=== PATIENT | female | born 2000 | race Caucasian/White ===

== ENCOUNTER 2019-04-09 23:39 | Emergency (ER) | payer OTHER ==
[~2019-04-09] VITALS: Ht 167.6 cm; Wt 61.4 kg
[2019-04-09] MEDS ORDERED: CIPR500T39 PO (23:46)
[2019-04-10 00:18] LABS: BASO # 0.1 10^3/uL (0.0-0.2); BASO % 0.9 % (0.0-1.0); EOS # 0.1 10^3/uL (0.0-0.50); EOS % 1.2 % (0.0-3.0); HEMATOCRIT 46.1 % (36.0-47.0); HEMOGLOBIN 15.6 g/dl (12.0-15.5); LYMPH # 2.1 10^3/uL (1.5-6.5); LYMPH % 20.5 % (24.0-44.0); MEAN CORPUSCULAR HEMOGLOBIN 31.6 pg (27.0-33.0); MEAN CORPUSCULAR HGB CONC 33.8 g/dl (32.0-36.5); MEAN CORPUSCULAR VOLUME 93.3 fl (80.0-96.0); MONO # 0.9 10^3/uL (0.0-0.8); MONO % 8.5 % (0.0-5.0); NEUTROPHILS # 7.1 10^3/uL (1.8-7.7); NEUTROPHILS % 68.7 % (36.0-66.0); PLATELET COUNT, AUTOMATED 268 10^3/uL (150-450); RED BLOOD COUNT 4.94 10^6/uL (4.00-5.40); WHITE BLOOD COUNT 10.3 10^3/uL (4.0-10.0)
[2019-04-10 00:37] LABS: BLOOD UREA NITROGEN 14 MG/DL (7-18); CALCIUM LEVEL 9.5 MG/DL (8.5-10.1); CARBON DIOXIDE LEVEL 25 MEQ/L (21-32); CHLORIDE LEVEL 106 MEQ/L (98-107); CREATININE FOR GFR 0.93 MG/DL (0.55-1.30); GLUCOSE, FASTING 98 MG/DL (70-100); LIPASE 145 U/L (73-393); POTASSIUM SERUM 3.8 MEQ/L (3.5-5.1); SODIUM LEVEL 139 MEQ/L (136-145)
[2019-04-10] MEDS ORDERED: ISOVUE-370 76% 100ML VIAL (Q9967) As Ordered ONE (00:42)
[2019-04-10] MEDS ORDERED: ONDANSETRON 4MG/2ML VIAL (J2405) IV ONE (00:45)
[2019-04-10] MEDS ORDERED: NS 1,000 ML IV ONE (00:45)
[2019-04-10] MEDS ORDERED: KETOROLAC 30 MG/ML VIAL (J1885) IV ONE (00:45)
--- NOTE | 2019-04-10 01:08 | REPVR ---
EXAM: CT Abdomen and Pelvis With Contrast EXAM DATE/TIME: 04/10/2019 12:49 AM CLINICAL HISTORY: 18 years old, female; Abdominal pain; Flank; Other: Bilateral; Additional info: Bilat flank pain, UTI, L groin pain TECHNIQUE: Imaging protocol: Axial computed tomography images of the abdomen and pelvis with intravenous contrast. Coronal and sagittal reformatted images were created and reviewed. Radiation optimization: All CT scans at this facility use at least one of these dose optimization techniques: automated exposure control; mA and/or kV adjustment per patient size (includes targeted exams where dose is matched to clinical indication); or iterative reconstruction. Contrast material: ISOVUE 370;Contrast volume: 100 ml;Contrast route: IV; COMPARISON: No relevant prior studies available. FINDINGS: Lungs: No suspicious mass or airspace process in the visualized lung bases. Liver: Liver appears normal with no focal abnormality. Gallbladder and bile ducts: Gallbladder is present and shows no evidence of gallstone. Pancreas: Pancreas appears normal. No focal mass or peripancreatic inflammation. Spleen: Spleen appears homogeneous without focal mass. Adrenals: Adrenal glands are normal in appearance. Kidneys and ureters: Kidneys appear normal, with no stone, solid mass or hydronephrosis. Stomach and bowel: No evidence of small bowel obstruction. No evidence of acute diverticulitis. Moderate pattern of colonic stool is present. Appendix: Appendix is not seen. No RLQ inflammation to suggest appendicitis. Intraperitoneal space: No pneumoperitoneum. Trace free fluid is present in the pelvis. Vasculature: No aortic aneurysm. Lymph nodes: No enlarged lymph nodes. Bladder: Bladder appears normal. Reproductive: Right ovarian cyst measuring 2 cm is incidentally noted Bones/joints: Bony structures show no acute fracture or destructive process. Soft tissues: Unremarkable. IMPRESSION: 1. No acute surgical or inflammatory intra-abdominal or pelvic process. 2. Large volume of colonic stool suggesting perhaps an element of constipation. 3. Right ovarian cyst measuring 2 cm Electronically signed by: Benton Elaine On 04/10/2019 01:07:57 AM
[2019-04-10] MEDS ORDERED: KEFL500C17 PO (01:42)
[2019-04-10] MEDS ORDERED: KETO10TAB PO (01:43)
[2019-04-10] MEDS ORDERED: ZOFR4TAB16 PO (01:45)
[2019-04-10] MEDS ORDERED: CEPHALEXIN 500 MG CAP PO ONE (01:45)
[2019-04-10 01:53] VITALS: BP 118/59
[2019-04-12] MEDS ORDERED: MACR100C43 PO (12:10)
== END 2019-04-10 01:55 | disposition home or self-care (01) ==
LOC: M ED 23:39
DX: N12 Tubulo-interstitial nephritis, not specified as acute or chronic (principal); N83.201 Unspecified ovarian cyst, right side; Z88.0 Allergy status to penicillin; Z88.5 Allergy status to narcotic agent
CPT/HCPCS: 74177; 80048; 81001; 83690; 85025; 87088; 87186; 96374; 96375; 99284; J1885; J2405; Q9967

== ENCOUNTER 2019-04-18 10:13 | Emergency (ER) | payer OTHER ==
[~2019-04-18] VITALS: Ht 167.6 cm; Wt 67.0 kg
[~2019-04-18 10:13] MED LIST: CIPR500T39 PO; KEFL500C17 PO; KETO10TAB PO; MACR100C43 PO; ZOFR4TAB16 PO
[2019-04-18 11:49] LABS: BASO # 0.1 10^3/uL (0.0-0.2); BASO % 0.9 % (0.0-1.0); EOS # 0.1 10^3/uL (0.0-0.50); EOS % 0.8 % (0.0-3.0); HEMATOCRIT 43.4 % (36.0-47.0); HEMOGLOBIN 14.6 g/dl (12.0-15.5); LYMPH # 1.7 10^3/uL (1.5-6.5); LYMPH % 20.7 % (24.0-44.0); MEAN CORPUSCULAR HEMOGLOBIN 31.3 pg (27.0-33.0); MEAN CORPUSCULAR HGB CONC 33.6 g/dl (32.0-36.5); MEAN CORPUSCULAR VOLUME 93.1 fl (80.0-96.0); MONO # 0.5 10^3/uL (0.0-0.8); MONO % 5.9 % (0.0-5.0); NEUTROPHILS # 5.7 10^3/uL (1.8-7.7); NEUTROPHILS % 71.4 % (36.0-66.0); PLATELET COUNT, AUTOMATED 288 10^3/uL (150-450); RED BLOOD COUNT 4.66 10^6/uL (4.00-5.40)
[2019-04-18 12:14] LABS: ALBUMIN 4.1 GM/DL (3.2-5.2); ALT/SGPT 26 U/L (12-78); BILIRUBIN,DIRECT 0.2 MG/DL (0.0-0.2); BILIRUBIN,TOTAL 0.7 MG/DL (0.2-1.0); BLOOD UREA NITROGEN 18 MG/DL (7-18); CALCIUM LEVEL 9.3 MG/DL (8.5-10.1); CARBON DIOXIDE LEVEL 28 MEQ/L (21-32); CHLORIDE LEVEL 109 MEQ/L (98-107); CREATININE FOR GFR 0.94 MG/DL (0.55-1.30); GLUCOSE, FASTING 87 MG/DL (70-100); LIPASE 123 U/L (73-393); POTASSIUM SERUM 4.1 MEQ/L (3.5-5.1); SODIUM LEVEL 143 MEQ/L (136-145); TOTAL PROTEIN 7.3 GM/DL (6.4-8.2)
[2019-04-18] MEDS ORDERED: KETOROLAC 30 MG/ML VIAL (J1885) IV ONE (12:45)
[2019-04-18 13:10] LABS: HCG, SERUM QUALITATIVE NEGATIVE (NEGATIVE)
[2019-04-18] MEDS ORDERED: ISOVUE-370 76% 100ML VIAL (Q9967) As Ordered ONE (13:17)
--- NOTE | 2019-04-18 13:59 | REP ---
CT of the abdomen and pelvis with IV contrast, without bowel contrast: Comparison is 04/10/2090. There is a 5.6 cm right adnexal cyst. The uterus and left adnexa are unremarkable. There is no pelvic ascites or adenopathy. The pelvic bowel loops are otherwise unremarkable. The appendix is obscured by bowel and is not visualized. There is no pericecal phlegmon or abscess to suggest appendicitis. There are no renal calculi. There is no hydronephrosis. There are no ureteral calculi. There are no bladder calculi. The visualized lung allen are unremarkable. The hepatic parenchyma, gallbladder, pancreas, spleen, adrenals, abdominal aorta, bowel and mesentery are unremarkable. There is no retroperitoneal adenopathy or mass. There is no bowel distension or obstruction. There is no pneumoperitoneum. Impression: There is a 5.6 cm right adnexal cyst. There is no CT evidence of appendicitis. There are no renal calculi. There is no hydronephrosis. There are no renal masses or cysts. There are no bladder calculi. Electronically Signed by Mickey Christopher MD 04/18/2019 01:51 P
[2019-04-18] MEDS ORDERED: diphenhydrAMINE INJ 50MG/ML VIAL (J1200) IV STA (15:34)
[2019-04-18] MEDS ORDERED: MORPHINE 4 MG/ML 1ML VIAL/SYRINGE (J2270) IV ONE (15:45)
[2019-04-18 16:13] VITALS: BP 140/67
--- NOTE | 2019-04-18 16:14 | REP ---
Pelvic ultrasound including transabdominal, endovaginal and Doppler ultrasound assessment: Comparison is the CT abdomen and pelvis CT performed earlier today. The uterus is anteverted and normal size measuring 7.5 x 2.9 x 4.8 cm. The endometrium is not thickened measuring 2.3 mm. Right ovary: There is a complex right ovarian cyst measuring 5.5 x 3.8 x 4.1 cm. Including the cyst the right ovary is enlarged measuring 6.3 x 4.5 x 4.6 cm. There is vascular flow in the right ovary. The Doppler resistive index of the right ovarian parenchymal arteries is 0.60. Left ovary: The left ovary measures 3.5 x 2.0 x 1.9 cm. There is no dominant mass or cyst. There is vascular flow with the Doppler resistive index of the left ovarian parenchymal arteries measuring 0.58. There is a trace of free fluid in the pelvis. Impression: There is a 5.5 cm complex right ovarian cyst. The left ovary is unremarkable. There is vascular flow in both ovaries. Uterus and endometrium are unremarkable. Electronically Signed by Mickey Christopher MD 04/18/2019 04:06 P
[2019-04-18] MEDS ORDERED: TRAM50TA2 PO (16:43)
--- NOTE | 2019-04-18 17:04 | ED PDOC ---
Post-Departure Follow-Up ft juan manuel syed faxed formal report of pelvic us for fu Raymond Cantu MD Apr 18, 2019 17:04
== END 2019-04-18 16:57 | disposition home or self-care (01) ==
LOC: M ED 10:13
DX: N83.201 Unspecified ovarian cyst, right side (principal); Z88.0 Allergy status to penicillin; Z88.5 Allergy status to narcotic agent
CPT/HCPCS: 36415; 74177; 76830; 76856; 80048; 80076; 81001; 83690; 84703; 85025; 93976; 96374; 96375; 99284; J1200; J1885; J2270; Q9967

== ENCOUNTER 2019-04-20 09:24 | Emergency (ER) | payer OTHER ==
[~2019-04-20] VITALS: Ht 167.6 cm; Wt 63.6 kg
[~2019-04-20 09:24] MED LIST changes: +TRAM50TA2 PO
[2019-04-20] MEDS ORDERED: TRAM50TA2 PO (09:32)
[2019-04-20 10:16] LABS: BASO # 0.1 10^3/uL (0.0-0.2); BASO % 0.8 % (0.0-1.0); EOS # 0.1 10^3/uL (0.0-0.50); EOS % 0.6 % (0.0-3.0); HEMATOCRIT 41.3 % (36.0-47.0); HEMOGLOBIN 13.9 g/dl (12.0-15.5); LYMPH # 1.5 10^3/uL (1.5-6.5); MEAN CORPUSCULAR HEMOGLOBIN 30.4 pg (27.0-33.0); MEAN CORPUSCULAR HGB CONC 33.7 g/dl (32.0-36.5); MEAN CORPUSCULAR VOLUME 90.4 fl (80.0-96.0); MONO # 0.4 10^3/uL (0.0-0.8); MONO % 4.9 % (0.0-5.0); NEUTROPHILS # 6.4 10^3/uL (1.8-7.7); NEUTROPHILS % 75.5 % (36.0-66.0); PLATELET COUNT, AUTOMATED 284 10^3/uL (150-450); RED BLOOD COUNT 4.57 10^6/uL (4.00-5.40); WHITE BLOOD COUNT 8.5 10^3/uL (4.0-10.0)
--- NOTE | 2019-04-20 11:39 | REP ---
REASON FOR EXAM: Followup 5.5 cm sized complex right ovarian cyst seen on prior examination obtained 04/18/2019 which was reviewed. Transvesical and transvaginal imaging was obtained. The uterus is unchanged in size, shape, and echo pattern. The endometrial echo complex is again seen to be normal. It too is unchanged from 2 days ago. The right ovary measures 4.5 x 3.1 x 4.2 cm. In the right ovary there is a 2.4 x 1.8 x 3.2 cm sized complex cystic structure. The right ovarian RI is 0.64. Left ovary measures 3.0 x 2.1 x 2.3 cm and is within normal limits with an RI of 0.64. There is a trace amount of free fluid in the pelvis. IMPRESSION: The complex cyst is seen previously in the right ovary has gotten smaller as described above. The examination is otherwise unremarkable. Electronically Signed by Alfredo Mclean DO 04/20/2019 12:41 P
[2019-04-20] MEDS ORDERED: KETOROLAC 30 MG/ML VIAL (J1885) IV ONE (12:15)
[2019-04-20] MEDS ORDERED: ISOVUE-370 76% 100ML VIAL (Q9967) As Ordered ONE (12:39)
--- NOTE | 2019-04-20 15:26 | REP ---
REASON: Right lower quadrant pain. COMPARISON: 04/18/2019. CONTRAST: 100 mL Isovue 370. The lung bases are clear. The liver, gallbladder, spleen, pancreas, adrenal glands, and kidneys are again seen to be normal. The bowel loops and their mesenteries are within normal limits and essentially unchanged. The appendix is unremarkable in appearance. There is no free fluid or free air. The abdominal aorta and paraaortic regions are within normal limits. There is no evidence of an intra-abdominal mass or adenopathy. CT PELVIS: There is a trace amount of free pelvic fluid. The large cystic structure seen previously in the right adnexa has gotten significantly smaller. Today it has a maximal dimension of 3.3 cm, previously 5.6 cm. The pelvic bowel loops are unremarkable. The osseous structures are stable and intact. IMPRESSION: 1. No appendicitis. 2. Resolving right adnexal cyst. Electronically Signed by Alfredo Mclean DO 04/20/2019 05:18 P
[2019-04-20 15:49] VITALS: BP 122/74
[2019-04-20 16:30] LABS: CHLAMYDIA DNA AMPLIFICATION NEGATIVE (NEGATIVE); GC DNA AMPLIFICATION NEGATIVE (NEGATIVE)
== END 2019-04-20 15:51 | disposition home or self-care (01) ==
LOC: M ED 09:24
DX: N83.291 Other ovarian cyst, right side (principal); Z79.899 Other long term (current) drug therapy; Z88.0 Allergy status to penicillin; Z88.5 Allergy status to narcotic agent
CPT/HCPCS: 74177; 76830; 76856; 80047; 81001; 84702; 85025; 87210; 87491; 87591; 93976; 96374; 99284; J1885; Q9967

== ENCOUNTER → 2019-05-05 | Outpatient (REF) | payer OTHER ==
[2019-05-05 18:06] LABS: CHLAMYDIA DNA AMPLIFICATION NEGATIVE (NEGATIVE); GC DNA AMPLIFICATION NEGATIVE (NEGATIVE)
== END ==
LOC: M SFHCLERA 12:01
PROVIDERS: ATTEND Nurse Practitioner Family
DX: R10.9 Unspecified abdominal pain (principal)
CPT/HCPCS: 81002; 81025; 87661; 96372; G0463; J1885

== ENCOUNTER 2019-10-19 06:40 | Emergency (ER) | payer OTHER ==
[~2019-10-19] VITALS: Ht 167.6 cm; Wt 65.6 kg
[2019-10-19] MEDS ORDERED: BIRTH CONTROL (06:47)
[2019-10-19] MEDS ORDERED: AMIT-255 PO (06:47)
[2019-10-19] MEDS ORDERED: GABA-845 PO (06:47)
[2019-10-19] MEDS ORDERED: ORIL150T PO (06:47)
[2019-10-19] MEDS ORDERED: KETOROLAC 30 MG/ML VIAL (J1885) IV ONE (07:15)
[2019-10-19] MEDS ORDERED: NS 1,000 ML IV ONE (07:15)
[2019-10-19 07:35] LABS: BASO % 0.4 % (0.0-1.0); EOS # 0.1 10^3/uL (0.0-0.5); HEMATOCRIT 41.6 % (36.0-47.0); HEMOGLOBIN 14.4 g/dl (12.0-15.5); LYMPH # 0.8 10^3/uL (1.5-5.0); LYMPH % 9.8 % (24.0-44.0); MEAN CORPUSCULAR HEMOGLOBIN 31.2 pg (27.0-33.0); MEAN CORPUSCULAR HGB CONC 34.6 g/dl (32.0-36.5); MEAN CORPUSCULAR VOLUME 90.2 fl (80.0-96.0); MONO # 0.5 10^3/uL (0.0-0.8); MONO % 6.5 % (0.0-5.0); NEUTROPHILS # 6.6 10^3/uL (1.5-8.5); NEUTROPHILS % 82.1 % (36.0-66.0); PLATELET COUNT, AUTOMATED 214 10^3/uL (150-450); RED BLOOD COUNT 4.61 10^6/uL (4.00-5.40); WHITE BLOOD COUNT 8.1 10^3/uL (4.0-10.0)
[2019-10-19 08:04] LABS: BLOOD UREA NITROGEN 13 MG/DL (7-18); CALCIUM LEVEL 8.9 MG/DL (8.5-10.1); CARBON DIOXIDE LEVEL 25 MEQ/L (21-32); CHLORIDE LEVEL 107 MEQ/L (98-107); CREATININE FOR GFR 0.84 MG/DL (0.55-1.30); GLUCOSE, FASTING 91 MG/DL (70-100); POTASSIUM SERUM 3.6 MEQ/L (3.5-5.1); SODIUM LEVEL 137 MEQ/L (136-145)
[2019-10-19] MEDS ORDERED: MORPHINE 4 MG/ML 1ML VIAL/SYRINGE (J2270) IV ONE ×2 (08:30→10:15)
[2019-10-19] MEDS ORDERED: ONDANSETRON 4MG/2ML VIAL (J2405) IV ONE (08:30)
--- NOTE | 2019-10-19 10:06 | REP ---
Clinical: Pelvic pain. Technique: Transabdominal pelvic ultrasound followed by transvaginal examination for better evaluation of the endometrium and adnexa with color Doppler evaluation of the ovaries. Findings: Bladder is normal and measures 7.5 x 5.7 x 7.0 cm. Normal anteverted uterus measures 7.3 x 3.1 x 4.8 cm. Endometrial complex measures 9.3 mm thickness. Bilateral ovaries are normal in appearance and vascularity without torsion. Right ovary measures 3.0 x 1.9 x 2.8 cm (RI 0.60) and a right paraovarian simple cyst is identified measuring 0.9 x 1.4 x 0.9 cm. Left ovary measures 3.1 x 1.1 x 2.5 cm (RI 0.62). Small amount of free fluid in the pelvis is nonspecific and possibly physiologic. Impression: 1.4 cm simple right paraovarian cyst. Otherwise essentially normal examination. Electronically Signed by Eliud Polanco MD 10/19/2019 09:57 A
[2019-10-19] MEDS ORDERED: METOCLOPRAMIDE INJ 10MG/2ML VIAL (J2765) IV ONE (11:00)
[2019-10-19 12:03] VITALS: BP 109/53
== END 2019-10-19 12:22 | disposition home or self-care (01) ==
LOC: M ED 06:40
DX: N80.9 Endometriosis, unspecified (principal); N83.201 Unspecified ovarian cyst, right side; Z88.0 Allergy status to penicillin; Z88.5 Allergy status to narcotic agent
CPT/HCPCS: 76830; 76856; 80048; 81001; 84702; 85025; 93976; 96374; 96375; 96376; 99284; J1885; J2270; J2405; J2765

== ENCOUNTER 2020-02-23 14:20 | Emergency (ER) | payer OTHER ==
[~2020-02-23] VITALS: Ht 167.6 cm; Wt 66.9 kg
[~2020-02-23 14:20] MED LIST changes: +AMIT-255 PO; +BIRTH CONTROL; +GABA-845 PO; +ORIL150T PO
[2020-02-23] MEDS ORDERED: KETOROLAC 60MG 2ML VIAL IM ONE (15:30)
[2020-02-23 15:39] LABS: BASO # 0.1 10^3/uL (0.0-0.2); BASO % 0.9 % (0.0-1.0); EOS # 0.1 10^3/uL (0.0-0.5); EOS % 1.8 % (0.0-3.0); HEMATOCRIT 42.4 % (36.0-47.0); HEMOGLOBIN 14.5 g/dl (12.0-15.5); LYMPH # 2.2 10^3/uL (1.5-5.0); LYMPH % 38.3 % (24.0-44.0); MEAN CORPUSCULAR HEMOGLOBIN 31.5 pg (27.0-33.0); MEAN CORPUSCULAR HGB CONC 34.2 g/dl (32.0-36.5); MONO # 0.5 10^3/uL (0.0-0.8); MONO % 9.3 % (0.0-5.0); NEUTROPHILS # 2.8 10^3/uL (1.5-8.5); NEUTROPHILS % 49.5 % (36.0-66.0); PLATELET COUNT, AUTOMATED 293 10^3/uL (150-450); RED BLOOD COUNT 4.61 10^6/uL (4.00-5.40); WHITE BLOOD COUNT 5.7 10^3/uL (4.0-10.0)
[2020-02-23 16:04] LABS: ALT/SGPT 15 U/L (12-78); BILIRUBIN,DIRECT 0.1 MG/DL (0.0-0.2); BILIRUBIN,TOTAL 0.3 MG/DL (0.2-1.0); BLOOD UREA NITROGEN 14 MG/DL (7-18); CALCIUM LEVEL 9.4 MG/DL (8.5-10.1); CARBON DIOXIDE LEVEL 26 MEQ/L (21-32); CHLORIDE LEVEL 106 MEQ/L (98-107); GLOMERULAR FILTRATION RATE > 60.0 (>60); GLUCOSE, FASTING 93 MG/DL (70-100); LIPASE 208 U/L (73-393); POTASSIUM SERUM 4.2 MEQ/L (3.5-5.1); SODIUM LEVEL 140 MEQ/L (136-145); TOTAL PROTEIN 7.2 GM/DL (6.4-8.2)
[2020-02-23 16:56] VITALS: BP 132/74
--- NOTE | 2020-02-23 17:16 | REP ---
REASON: Pelvic pain. COMPARISON: 10/19/2019 Transvesical imaging was obtained. There reason transvaginal imaging was withheld is unknown to me. The exam is limited by the lack of transvaginal imaging. The uterus is unchanged in size, shape, and echo pattern measuring 7.5 x 3.4 x 4.3 cm. The endometrial echo complex has a normal transvesical appearance measuring 6 mm and in its greatest thickness. The right ovary measures 2.4 x 1.8 x 2 cm and is within normal limits with an RI of 0.42. The left ovary measures 2.3 x 1.6 x 2 cm and is within normal limits with an RI of 0.68. Urinary bladder measures 6 x 8 x 10 cm. IMPRESSION: Normal transvesical pelvic ultrasound. Electronically Signed by Alfredo Mclean DO 02/24/2020 10:35 A
== END 2020-02-23 16:58 | disposition home or self-care (01) ==
LOC: M ED 14:20
DX: N80.9 Endometriosis, unspecified (principal); Z88.1 Allergy status to other antibiotic agents; Z88.5 Allergy status to narcotic agent; Z79.899 Other long term (current) drug therapy
CPT/HCPCS: 36415; 76856; 80048; 80076; 81001; 83690; 84702; 85025; 93976; 99284; J1885

== ENCOUNTER 2020-04-11 11:15 | Day surgery (SDC) | payer OTHER ==
[2020-04-11] MEDS ORDERED: LevoFLOXacin 500MG/100ML IV BAG (J1956 PER 250MG) ONE (11:17)
[2020-04-11] MEDS ORDERED: LIDOCAINE 2% 100MG/5ML SDV (FOR ANES.) ONE (14:21)
[2020-04-11] MEDS ORDERED: propofoL 200 MG/20 ML VIAL ONE (14:21)
[2020-04-11] MEDS ORDERED: dexameTHASONE 4 MG/ML 1ML VIAL (J1100 PER 1MG) ONE (14:21)
[2020-04-11] MEDS ORDERED: ONDANSETRON 4MG/2ML VIAL ONE (14:21)
[2020-04-11] MEDS ORDERED: fentaNYL 100 MCG/2 ML INJECTION (J3010) ONE (14:22)
[2020-04-11] MEDS ORDERED: MIDAZOLAM INJ 2MG/2ML VIAL (J2250 PER 1MG) ONE (14:22)
[2020-04-11] MEDS ORDERED: BOTOX THERAPEUTIC 100 UNIT VIAL (J0585 PER 1 UNIT) ONE (14:30)
[2020-04-11] MEDS ORDERED: methylPREDNISolone 500 MG VIAL (J2930) ONE (14:36)
[2020-04-11] MEDS ORDERED: LIDOCAINE 1% MDV 20ML VIAL ONE (14:36)
[2020-04-11] MEDS ORDERED: KETOROLAC 60MG 2ML VIAL ONE (15:42)
[2020-04-11] MEDS ORDERED: ACETAMINOPHEN 1000MG 100ML IV BTL (OFIRMEV) (J0131 PER 10MG) ONE (15:43)
[2020-04-11] MEDS ORDERED: SILVER NITRATE APPLICATOR ONE (15:50)
[2020-04-11] MEDS ORDERED: METOCLOPRAMIDE INJ 10MG/2ML VIAL (J2765 PER 1) ONE (16:55)
[2020-04-11] MEDS ORDERED: PERCOCET 5MG/325MG TAB ONE ×2 (16:55→18:26)
[2020-05-25 10:52] LABS: APPEARANCE, URINE MANUAL CLEAR (CLEAR); COLOR, URINE MANUAL ORANGE (YELLOW); PH,URINE MAN OBSCURED UNITS (5.0 - 7.0)
[2020-05-25 10:53] LABS: BILIRUBIN, URINE MANUAL OBSCURED (NEGATIVE); BLOOD URINE MANUAL OBSCURED (NEGATIVE); GLUCOSE, URINE (UA) MANUAL OBSCURED mg/dL (NEGATIVE); KETONE, URINE MANUAL OBSCURED mg/dL (NEGATIVE); LEUKOCYTE ESTERASE, URINE MAN OBSCURED (NEGATIVE); NITRITE, URINE MANUAL OBSCURED (NEGATIVE); PROTEIN, URINE MANUAL OBSCURED mg/dL (NEGATIVE); SQUAMOUS EPITHELIAL CELL URINE SMALL AMOUNT /hpf (SMALL AMT); UROBILINOGEN, URINE MANUAL OBSCURED mg/dl (NORMAL)
[2020-05-25 10:54] LABS: BACTERIA, URINE SMALL AMOUNT
[2020-06-03 01:00] LABS: BASO # 0.1 10^3/uL (0.0-0.2); EOS # 0.1 10^3/uL (0.0-0.5); EOS % 1.2 % (0.0-3.0); HEMATOCRIT 42.9 % (36.0-47.0); HEMOGLOBIN 14.4 g/dl (12.0-15.5); LYMPH # 1.7 10^3/uL (1.5-5.0); LYMPH % 34.2 % (24.0-44.0); MEAN CORPUSCULAR HEMOGLOBIN 31.8 pg (27.0-33.0); MEAN CORPUSCULAR HGB CONC 33.6 g/dl (32.0-36.5); MEAN CORPUSCULAR VOLUME 94.7 fl (80.0-96.0); MONO # 0.4 10^3/uL (0.0-0.8); MONO % 7.1 % (0.0-5.0); NEUTROPHILS # 2.8 10^3/uL (1.5-8.5); NEUTROPHILS % 56.3 % (36.0-66.0); PLATELET COUNT, AUTOMATED 259 10^3/uL (150-450); RED BLOOD COUNT 4.53 10^6/uL (4.00-5.40); WHITE BLOOD COUNT 4.9 10^3/uL (4.0-10.0)
--- NOTE | 2020-06-08 08:11 | RO ---
DATE OF OPERATION: 04/11/2020 PREOPERATIVE DIAGNOSES: 1. Interstitial cystitis. 2. Chronic pelvic pain. 3. Myofascial pain syndrome. 4. Endometriosis. POSTOPERATIVE DIAGNOSES: 1. Interstitial cystitis. 2. Chronic pelvic pain. 3. Myofascial pain syndrome. 4. Endometriosis. PROCEDURES: 1. Diagnostic cystoscopy with bladder instillation of medications (40,000 units of heparin, 20 mL of 8.4% of sodium bicarbonate, 20 mL of 1% Xylocaine, Solu- Medrol 250 mg). 2. Diagnostic hysteroscopy. 3. Dilation and curettage with MyoSure. 4. Mirena intrauterine device insertion. 5. Levator ani pelvic muscle trigger injection with 1% Xylocaine and Solu-Medrol 250 mg. 6. Botox 100 units. SURGEON: Dr. Angelica Christopher [employer]: None. ANESTHESIA: MAC. ESTIMATED BLOOD LOSS: 25 mL estimated. INTRAVENOUS FLUIDS: 500 mL lactated Ringer's. URINE OUTPUT: Not recorded. COMPLICATIONS: None. SPECIMENS: Intrauterine curettings. FINDINGS: Hysteroscopy revealed a fairly empty uterus with the appearance of progesterone effect with what appeared to be patent ostia bilaterally. Cystoscopy had the appearance of interstitial cystitis with multiple petechiae at the dome of the bladder and on the posterior portion, including in the portion where the ureters were. Both ureters were found to be patent. The urethra was normal without masses, diverticulum, or polyps, and no sphincter deficiency was noted. PROCEDURE IN DETAIL: The patient was brought back to the operating room, where anesthesia was induced, and patient was placed in the dorsal lithotomy position, draped and prepped in the usual sterile fashion. Exam under anesthesia was then performed with the above findings. A 30-degree 5 mm operative cystoscope was then put together and checked for all working parts and then under flow was introduced into the urethra with the above findings. Flow was discontinued at the internal sphincter of the urethra, and no sphincter deficiency was then noted. Flow was then replaced for hydrodistention into the bladder, and the above findings were then found. The bladder was then emptied and then distended to a total of 500 mL. The distention was recorded for a total of 2 minutes total. Then a total of 250 mL was then removed for better visualization of the ureters, which was looked at more specifically and within the trigone. The hydrodistention fluid was then removed. Cystoscope was then removed without difficulty. Syringe with Solu-Medrol and 1% Xylocaine, which was confirmed and expiration date was confirmed, as then placed with a 20-gauge spinal needle and was injected into the patient's right levator ani muscle with a total of 5 mL of fluid. Prior to injected, withdrawal to ensure no intravascular injection was performed. This was placed in the anterior portion of the muscle, and then additional injection was then placed deeper, further into the muscle toward the arcus tendineus, approximately 1.5 cm, and, again, withdrawal was performed first. This was repeated on patient's left side. Syringe was then removed. This same process was repeated with Botox 100 units. A bivalve speculum was then placed within the patient's vagina, and the cervix was then identified. The anterior lip of the cervix was then grasped with a single-tooth tenaculum, and the cervix was noted to be nulliparous. The cervix was then dilated with a slightly curved Hegar to a 16 size. A 0 scope hysteroscope was then put together through the MyoSure device and zeroed out and balanced. With hydrodistention, it was then introduced through the cervical canal under direct visualization until it was introduced into the uterus. The above findings were then found. The evacuation suction was then removed, and the MyoSure device was then placed, again under direct visualization. Mild curetting was then performed in all areas of the uterus, both anterior and posterior and both sides of the endometrium within the uterus under direct visualization, taking special care not to go too deep and just barely touching the endometrium and under direct visualization at all times. The MyoSure device was then removed, and suction was performed for better visualization to look at the curetted areas and for pictures. The remaining fluid was then removed, and hysteroscope again was removed. The uterus was noted to sound to 8 cm. Mirena was then removed sterilely from the immunohematologist's box and placed on the sterile field and loaded up for insertion and through the insertion device was placed gently through the cervical canal into the uterus until the fundus was palpated. This was then pulled back approximately 1 cm, and then through the insertion device it was expelled while gently pushing forward to the fundus of the uterus. The insertion device was then gently removed without difficulty. The strings were then cut approximately 3 cm from the external os the cervix. The single-tooth tenaculum was then removed, and hemostasis was achieved with silver nitrate without difficulty. A Zuleta catheter was then placed into the urethra, into the bladder, and the bladder was emptied, and instillation medications as mentioned above in procedure was then instilled into the bladder, and this was chased with a total of 10 mL of normal saline solution, and the catheter was then removed. Lap, needle, and instrument counts were correct times two. The patient was in stable condition to the recovery room. NATE
== END 2020-04-11 19:00 | disposition home or self-care (01) ==
LOC: M SDC 11:15
PROVIDERS: ATTEND Obstetrics & Gynecology
DX: N80.9 Endometriosis, unspecified (principal); N30.10 Interstitial cystitis (chronic) without hematuria; R10.2 Pelvic and perineal pain; M79.18 Myalgia, other site; Z88.5 Allergy status to narcotic agent; Z88.0 Allergy status to penicillin; Z79.899 Other long term (current) drug therapy
CPT/HCPCS: 20552; 52260; 58300; 58558; 80048; 81000; 84703; 85025; 85730; 87086; 88305; J0131; J0585; J1100; J1885; J1956; J2250; J2405; J2765; J2930; J3010